=== PATIENT | male | born 1985 | race Hispanic/Latino ===

== ENCOUNTER 2025-02-02 13:43 | Emergency (ER) | payer BC, SELFPAY ==
[2025-02-02 13:48] VITALS: BP 181/129; PULSE 92; RESP 16; TEMP 36.7; O2SAT 98; BMI 28.2
--- NOTE | 2025-02-02 15:57 | DI.CT.S_ITS ---
PROCEDURE: CT SOFT TISSUE NECK W CON INDICATIONS: left sided jaw and neck pain TECHNIQUE: After the administration of intravenous contrast, 3.0 mm axial sections acquired from the sella to the aortic arch. Additional oblique axial 3.0 mm sections acquired through the pharynx. 3 mm thick coronal and sagittal reformats were generated. For radiation dose reduction, the following was used: automated exposure control. COMPARISON: None. FINDINGS: Image quality: Excellent. Lymph nodes: No enlarged lymph nodes seen throughout the neck. Vessels: Visualized vasculature appears patent. Neck spaces: The oropharynx, nasopharynx, and pharynx demonstrate no mucosal lesions. The vocal cords, false vocal cords, pyriform sinuses, epiglottis, vallecula, and tongue base all appear normal. Extramucosal spaces appear unremarkable. Glands: The parotid and submandibular glands appear normal. There is a 7 x 7 mm calcification adjacent to the medial aspect of the left submandibular gland. Thyroid gland unremarkable. Miscellaneous: Visualized brain and orbits appear normal. Lung apices appear clear. Superficial soft tissues appear normal. Bones: No suspicious bony lesions. Visualized sinuses and mastoids appear unremarkable. IMPRESSION: 1. Findings most suggestive of a 7 x 7 mm stone in the lateral region of the left submandibular duct, adjacent to the gland. 2. No inflammatory changes or fluid collections seen. Dictated by: Will Payne M.D. on 02/02/2025 at 16:34 Approved by: Will Payne M.D. on 02/02/2025 at 16:39
[2025-02-02] MEDS: KETOROLAC 30 MG/ML VIAL IV (16:15)
[2025-02-02 16:17] LABS: Add Manual Diff / Slide Review NO; Basophils Absolute Auto 0 /uL (0-100); Basophils Percent Auto 0.4 % (0-2); Eosinophils Absolute Auto 0 /uL (0-450); Eosinophils Percent Auto 0.3 % (2-4); Lymphocytes Absolute Auto 2100 /uL (1100-4500); Lymphocytes Percent Auto 40.2 % (25-40); Mean Corpuscular HGB Conc 34.6 % (30-36); Mean Corpuscular Hemoglobin 28.9 PG (26-34); Mean Corpuscular Volume 83.5 fL (80-100); Monocytes Absolute Auto 400 /uL (0-900); Monocytes Percent Auto 7.3 % (3-14); Neutrophils Absolute Auto 2700 /uL (1500-7000); Neutrophils Percent Auto 51.8 % (50-75); Platelet Count 199 X10^3/uL (150-400); Red Blood Cell Count 5.52 X10^6/uL (4.5-5.9); White Blood Cell Count 5.3 X10^3/uL (4.5-11.0)
[2025-02-02 16:34] LABS: Alanine Aminotransferase 110 IU/L (<50); Albumin Globulin Ratio 1.5 (1.0-2.8); Alkaline Phosphatase 127 U/L (38-126); Aspartate Aminotransferase 54 IU/L (17-59); BUN Creatinine Ratio 20.7 (6-22); Bilirubin Total 0.8 mg/dL (0.2-1.3); Blood Urea Nitrogen 12 mg/dL (9-20); Calcium 9.8 mg/dL (8.4-10.2); Carbon Dioxide 22 mmol/L (22-32); Chloride 97 mmol/L (98-107); Estimated Glomerular Filt Rate > 60 mL/min (>60); Globulin 3.4 g/dL (1.7-4.1); Glucose 343 mg/dL (70-99); HEMOLYSIS 24 (0-50); Potassium 3.8 mmol/L (3.4-5.1); Sodium 132 mmol/L (137-145); Total Protein 8.4 g/dL (6.3-8.2)
[2025-02-02 16:56] LABS: Hemoglobin A1C% w Est Avg Glu 13.2 % (4.0-6.0)
[2025-02-02 17:34] VITALS: BP 165/110; PULSE 75; RESP 16; O2SAT 98
--- NOTE | 2025-02-02 18:28 | ED.SKABFB ---
HPI - Skin/Abscess/Foreign Bdy <Omid Palomares PA-C - Last Filed: 02/02/25 18:39> General Chief complaint: Skin/Abscess/Foreign Body Stated complaint: Face hurts, have trouble swollowing Time Seen by Provider: 02/02/25 14:51 Source: patient Mode of arrival: Family Vehicle Limitations: no limitations History of Present Illness HPI narrative: 39-year-old male presents to the ED with 3 weeks of left-sided jaw, mouth, facial pain. Patient states that the pain is worsened and incited when patient puts anything in his mouth to eat. Patient endorses a shooting pain that shoots across the left side of his mouth and face. Patient was seen at a walk-in clinic, diagnosed with TMJ and asked to follow-up with his PCP. Patient states that his symptoms have not improved in the last 3 weeks. No fever, chills, chest pain, shortness of breath, nausea, vomiting, abdominal pain, lightheadedness, dizziness, syncope. Patient does endorse some pain below his left ear, no changes to hearing. Patient denies any dental issues or dental pain. Related Data Previous Rx's ?Medication ?Instructions ?Recorded amoxicillin 875 mg-potassium 1 tab PO Q12H 10 days #20 tabs 02/02/25 clavulanate 125 mg tablet Allergies Allergy/AdvReac Type Severity Reaction Status Date / Time No Known Drug Allergies Allergy Verified 02/02/25 13:55 Review of Systems <Omid Palomares PA-C - Last Filed: 02/02/25 18:39> Constitutional Constitutional: Denies chills, Denies fatigue, Denies fever(s), Denies frequent falls, Denies lethargy and Denies weakness Eyes Eyes: Denies change in vision, Denies eye discharge, Denies irritation and Denies loss of vision ENT Ears, Nose, Mouth, and Throat: Denies change in voice, Denies dizziness, Reports facial pain, Denies neck pain, Denies sore throat and Denies throat swelling Cardiovascular Cardiovascular: Denies chest pain, Denies irregular heart rhythm, Denies lightheadedness, Denies palpitations, Denies dyspnea, Denies dyspnea on exertion and Denies orthopnea Respiratory Respiratory: Denies cough, Denies dyspnea, Denies dyspnea on exertion and Denies wheezing Gastrointestinal Gastrointestinal: Denies abdominal pain, Denies change in bowel habits, Denies diarrhea, Denies nausea and Denies vomiting Musculoskeletal Musculoskeletal: Denies neck pain and Denies numbness Integumentary/Breasts Skin/Breast: Denies pruritus, Denies erythema, Denies rash and Denies wounds Neurologic Neurologic: Denies behavioral changes, Denies confusion, Denies dizziness, Denies frequent falls, Denies loss of vision, Denies numbness and Denies weakness Psychiatric Psychiatric: Denies anxiety, Denies behavioral changes, Denies confusion, Denies depression, Denies homicidal ideation and Denies suicidal ideation Endocrine Endocrine: Denies fatigue, Denies flushing and Denies palpitations Hematologic/Lymphatic Hematologic/Lymphatic: Denies easy bruising Allergic/Immunologic Allergic/Immunologic: Denies urticaria, Denies throat swelling and Denies wheezing Exam <Omid Palomares PA-C - Last Filed: 02/02/25 18:39> Narrative Exam Narrative: Const General:?cooperative, healthy appearing and comfortable [facility] Head:?normal to inspection Ears:?hearing grossly normal bilaterally; no mastoid tenderness; tympani normal Nose:?external nose normal Face and sinus:?sinuses nontender; tenderness to palpation of the left jaw. Mouth:?oral mucosae normal; dentition normal Throat:?posterior oropharynx normal Eyes General:?appearance normal, both eyes and all related structures Neck Neck:?normal visual inspection and no lymphadenopathy noted Resp Effort & Inspection:?normal respiratory effort Auscultation:?clear to auscultation bilaterally Cardio Rate:?regular rate Rhythm:?regular rhythm Neuro General:?patient alert, patient awake and patient oriented x3 Initial Vital Signs Initial Vital Signs: Vital Signs Temperature 98.0 F 02/02/25 13:48 Pulse Rate 92 H 02/02/25 13:48 Respiratory Rate 16 02/02/25 13:48 Blood Pressure 181/129 H 02/02/25 13:48 Pulse Oximetry 98 02/02/25 13:48 Oxygen Delivery Method Room Air 02/02/25 13:48 <Axel Dugan MD - Last Filed: 02/02/25 20:14> Initial Vital Signs Initial Vital Signs: Vital Signs Temperature 98.0 F 02/02/25 13:48 Pulse Rate 92 H 02/02/25 13:48 Respiratory Rate 16 02/02/25 13:48 Blood Pressure 181/129 H 02/02/25 13:48 Pulse Oximetry 98 02/02/25 13:48 Oxygen Delivery Method Room Air 02/02/25 13:48 Course <Omid Palomares PA-C - Last Filed: 02/02/25 18:39> Orders Ordered: ED Orders 02/02/25 15:57 CT soft tissue neck w con Stat 02/02/25 16:04 A1C [Hemoglobin A1C% w Est Avg Glu] Stat CBC Auto Diff [Complete Blood Count AUTO DIFF] Stat CMP [Comprehensive Metabolic Panel] Stat Lactate (Lactic Acid) Stat Discontinued Medications Ketorolac Tromethamine (Ketorolac 30 Mg/Ml Vial) 30 mg IV NOW ONE Stop: 02/02/25 15:59 Last Admin: 02/02/25 16:15 Dose: 30 mg Documented By: RL Vital Signs Vital signs: Vital Signs - 8 hr 02/02/25 13:48 02/02/25 17:34 Temperature 98.0 F Pulse Rate 92 H 75 Respiratory Rate 16 16 Blood Pressure 181/129 H 165/110 H Pulse Oximetry 98 98 Oxygen Delivery Method Room Air Room Air <Axel Dugan MD - Last Filed: 02/02/25 20:14> Orders Ordered: ED Orders 02/02/25 15:57 CT soft tissue neck w con Stat 02/02/25 16:04 A1C [Hemoglobin A1C% w Est Avg Glu] Stat CBC Auto Diff [Complete Blood Count AUTO DIFF] Stat CMP [Comprehensive Metabolic Panel] Stat Lactate (Lactic Acid) Stat Discontinued Medications Ketorolac Tromethamine (Ketorolac 30 Mg/Ml Vial) 30 mg IV NOW ONE Stop: 02/02/25 15:59 Last Admin: 02/02/25 16:15 Dose: 30 mg Documented By: RL Vital Signs Vital signs: Vital Signs - 8 hr 02/02/25 13:48 02/02/25 17:34 Temperature 98.0 F Pulse Rate 92 H 75 Respiratory Rate 16 16 Blood Pressure 181/129 H 165/110 H Pulse Oximetry 98 98 Oxygen Delivery Method Room Air Room Air MDM - Skin/Abscess/Foreign Bdy <Omid Palomares PA-C - Last Filed: 02/02/25 18:39> Lab Data 02/02/25 16:04 02/02/25 16:04 Labs: Lab Results 02/02/25 Range/Units 16:04 WBC 5.3 (4.5-11.0) X10^3/uL RBC 5.52 (4.5-5.9) X10^6/uL Hgb 16.0 (13.5-17.5) g/dL Hct 46.0 (41-53) % MCV 83.5 (80-100) fL MCH 28.9 (26-34) PG MCHC 34.6 (30-36) % RDW 13.0 (11.6-14.8) % Plt Count 199 (150-400) X10^3/uL Neut % (Auto) 51.8 (50-75) % Lymph % (Auto) 40.2 H (25-40) % [place] % (Auto) 7.3 (3-14) % Eos % (Auto) 0.3 L (2-4) % Baso % (Auto) 0.4 (0-2) % Neut # (Auto) 2700 (5055-1739) /uL Lymph # (Auto) 2100 (8594-4197) /uL [place] # (Auto) 400 (0-900) /uL Eos # (Auto) 0 (0-450) /uL Baso # (Auto) 0 (0-100) /uL Sodium 132 L (137-145) mmol/L Potassium 3.8 (3.4-5.1) mmol/L Chloride 97 L (98-107) mmol/L Carbon Dioxide 22 (22-32) mmol/L BUN 12 (9-20) mg/dL Creatinine 0.58 L (0.66-1.25) mg/dL Estimated GFR > 60 (>60) mL/min BUN/Creatinine Ratio 20.7 (6-22) Glucose 343 H (70-99) mg/dL Hemoglobin A1c 13.2 H (4.0-6.0) % Lactate 1.0 (0.7-2.1) mmol/L Calcium 9.8 (8.4-10.2) mg/dL Total Bilirubin 0.8 (0.2-1.3) mg/dL AST 54 (17-59) IU/L ALT 110 H (<50) IU/L Alkaline Phosphatase 127 H (38-126) U/L Total Protein 8.4 H (6.3-8.2) g/dL Albumin 5.0 (3.5-5.0) g/dL Globulin 3.4 (1.7-4.1) g/dL Albumin/Globulin Ratio 1.5 (1.0-2.8) MDM Narrative Medical decision making narrative: 39-year-old male presents to the ED with 3 weeks of left-sided jaw, mouth, facial pain. Concern for TMJ versus dental infection versus tumor versus infectious causes in the neck versus sialolithiasis versus parotitis versus trigeminal neuralgia versus other. Will obtain labs, CT soft tissue neck with contrast. Will give ketorolac for pain. CT scan shows findings most suggestive of a 7 x 7 mm stone in the lateral region of the left submandibular duct, adjacent to the gland. No inflammatory changes or fluid collection seen. Labs show a significantly elevated glucose at 343. A1c was measured at 13.2. ALT elevated to 110. Alk-phos elevated to 127. Total protein 8.4. Discussed findings from the labs and CT with patient. Recommend follow-up with ENT for this urolithiasis. Recommend hot compresses, massage, sour had candies to encourage stone to dislodge. Antibiotics have also been prescribed. Discussed findings of high blood glucose and A1c with patient. Patient has not been diagnosed with diabetes until now, this is a new incidental finding for him. Recommend that he follow-up with his PCP as soon as possible for further evaluation and treatment. ED return precautions discussed with patient. Patient verbalized understanding. Medical records reviewed: Yes <Axel Dugan MD - Last Filed: 02/02/25 20:14> Lab Data Labs: Lab Results 02/02/25 Range/Units 16:04 WBC 5.3 (4.5-11.0) X10^3/uL RBC 5.52 (4.5-5.9) X10^6/uL Hgb 16.0 (13.5-17.5) g/dL Hct 46.0 (41-53) % MCV 83.5 (80-100) fL MCH 28.9 (26-34) PG MCHC 34.6 (30-36) % RDW 13.0 (11.6-14.8) % Plt Count 199 (150-400) X10^3/uL Neut % (Auto) 51.8 (50-75) % Lymph % (Auto) 40.2 H (25-40) % [place] % (Auto) 7.3 (3-14) % Eos % (Auto) 0.3 L (2-4) % Baso % (Auto) 0.4 (0-2) % Neut # (Auto) 2700 (2808-4243) /uL Lymph # (Auto) 2100 (3188-5589) /uL [place] # (Auto) 400 (0-900) /uL Eos # (Auto) 0 (0-450) /uL Baso # (Auto) 0 (0-100) /uL Sodium 132 L (137-145) mmol/L Potassium 3.8 (3.4-5.1) mmol/L Chloride 97 L (98-107) mmol/L Carbon Dioxide 22 (22-32) mmol/L BUN 12 (9-20) mg/dL Creatinine 0.58 L (0.66-1.25) mg/dL Estimated GFR > 60 (>60) mL/min BUN/Creatinine Ratio 20.7 (6-22) Glucose 343 H (70-99) mg/dL Hemoglobin A1c 13.2 H (4.0-6.0) % Lactate 1.0 (0.7-2.1) mmol/L Calcium 9.8 (8.4-10.2) mg/dL Total Bilirubin 0.8 (0.2-1.3) mg/dL AST 54 (17-59) IU/L ALT 110 H (<50) IU/L Alkaline Phosphatase 127 H (38-126) U/L Total Protein 8.4 H (6.3-8.2) g/dL Albumin 5.0 (3.5-5.0) g/dL Globulin 3.4 (1.7-4.1) g/dL Albumin/Globulin Ratio 1.5 (1.0-2.8) Discharge Plan Departure Patient Disposition: Home Clinical Impression: Sialolithiasis Instructions: What to Eat if You Have Diabetes Activity Restrictions/Additional Instructions: You were evaluated in the ED today for facial and mouth pain. The CT scan shows a 7 x 7 mm stone in the submandibular duct, which is likely causing your symptoms. You are being prescribed antibiotics to prevent an infection. You may continue to massage the area, apply heat, suck on sour hard candies to encourage getting the stone out. Since you have been unable to dislodge the stone over the last several weeks, it is advised that ENT you seek ENT consultation. You may call [facility] services at [phone]. He also incidentally noted that your blood sugar was extremely elevated at 343, and your A1c was 13.2, which is also extremely elevated. The A1c is a marker of your average blood sugar over the last 3 months, indicative that you are diabetic. It is important for you to follow-up with your PCP as soon as possible for further evaluation and treatment. Return to the ED if you have worsening symptoms. Prescriptions: New amoxicillin-pot clavulanate 875-125 mg tablet 1 tab PO Q12H 10 Days Qty: 20 0RF Stand Alone Forms: Patient Portal/API ED Sign-out <Axel Dugan MD - Last Filed: 02/02/25 20:14> Cosign ED Attending Telly Attestation: I was available for consultation during the time patient was in the emergency department however I was not consulted or involved in this patient's care, patient was seen independently by above MALLIKA
== END 2025-02-02 17:35 | disposition home or self-care (01) ==
PROVIDERS: Emergency Provider Student in an Organized Health Care Education/Training Program
DX: K11.5 Sialolithiasis (principal); R73.9 Hyperglycemia, unspecified
CPT/HCPCS: 36415; 70491; 80053; 83036; 83605; 85025; 96374; 99284; J1885; Q9967